=== PATIENT | female | born 1980 | race Caucasian/White ===

== ENCOUNTER 2023-11-26 06:29 | Day surgery (SDC) | payer BC ==
[2023-11-25 16:01] LABS: HEMATOCRIT 36.4 % (37.0-47.0); MEAN CORPUSCULAR HEMOGLOBIN 28.7 pg (28.0-32.0); MEAN CORPUSCULAR VOLUME 87.1 fL (83.0-99.0); MEAN PLATELET VOLUME 10.5 fL (9.4-12.3); PLATELET COUNT,PLT 307 K/uL (150-400); RED BLOOD CELL COUNT 4.18 M/uL (4.10-5.30); WHITE BLOOD CELL COUNT,WBC 6.91 K/uL (3.9-11.3)
[2023-11-26 07:06] LABS: CALCIUM 9.2 mg/dL (8.5-10.1); CARBON DIOXIDE,CO2 28.7 mmol/L (21.0-32.0); CREATININE 0.7 mg/dL (0.6-1.0); EST CRCL DRUG DOSING (CG) 82.8 mL/min; POTASSIUM,K 4.4 mmol/L (3.5-5.1)
[2023-11-26] MEDS: Lactated Ringers 1,000 ML IV SCH ×2 (07:07→18:11)
[2023-11-26] MEDS: Scopalamine 1mg/3day Transdermal Patch TOP ONE (07:15)
[2023-11-26] MEDS ORDERED: Bupivacaine 0.25% 10 ML SDV ONE (07:18)
[2023-11-26] MEDS ORDERED: Methylene Blue 100 MG/10 ML SDV ONE (07:19)
[2023-11-26] MEDS ORDERED: Ketorolac 30 MG/ML SDV ONE (07:23)
[2023-11-26] MEDS ORDERED: Lidocaine 2% 5 ML SDV ONE (07:23)
[2023-11-26] MEDS ORDERED: Dexamethasone 4 MG/ML 5 ML MDV ONE (07:23)
[2023-11-26] MEDS ORDERED: Ondansetron 4 MG/2 ML SDV ONE ×2 (07:23→09:29)
[2023-11-26] MEDS ORDERED: Rocuronium Bromide 50 MG/5 ML Syringe ONE ×2 (07:23→08:43)
[2023-11-26] MEDS ORDERED: Sugammadex Sodium 200 MG/2 ML VIAL IV ONE (07:23)
[2023-11-26] MEDS ORDERED: fentaNYL 100 MCG/2 ML SDV ONE ×2 (07:24→09:39)
[2023-11-26] MEDS ORDERED: Propofol 200 MG/20 ML SDV ONE ×2 (07:24→09:30)
[2023-11-26] MEDS ORDERED: Ketamine HCL/NACL, ISO-OSM 50 MG/5 ML Syringe ONE (07:24)
[2023-11-26] MEDS ORDERED: Water For Injection, Sterile 20 ML ONE (07:28)
[2023-11-26] MEDS ORDERED: dexmedeTOMIDine HCl 200 MCG/2 ML SDV ONE (07:28)
[2023-11-26] MEDS ORDERED: Ropivacaine 0.5% 5 MG/ML 30 ML SDV ONE (07:29)
[2023-11-26] MEDS ORDERED: Bupivacaine 0.25% 30 ML SDV ONE (07:29)
[2023-11-26] MEDS ORDERED: propofoL 50 ML ONE ×2 (07:31→08:34)
[2023-11-26] MEDS ORDERED: Naloxone 0.4 MG/ML SDV IVPUSH PRN (07:32)
[2023-11-26] MEDS ORDERED: Morphine 2 MG/ML SYRINGE IVPUSH PRN (07:32)
[2023-11-26] MEDS ORDERED: Metoclopramide 10 MG/2 ML SDV IVPUSH PRN (07:32)
[2023-11-26] MEDS ORDERED: droPERidol 5 MG/2 ML SDV IVPUSH PRN (07:32)
[2023-11-26] MEDS ORDERED: fentaNYL 50 MCG/ML SDV IVPUSH PRN (07:32)
[2023-11-26] MEDS ORDERED: Albuterol 0.083% 2.5 MG/3 ML Neb Soln NEB PRN (07:32)
[2023-11-26] MEDS ORDERED: Ondansetron 4 MG/2 ML SDV IVPUSH PRN ×2 (07:32→09:54)
[2023-11-26] MEDS ORDERED: ceFAZolin 1 GM Vial ONE (08:23)
[2023-11-26] MEDS ORDERED: Tranexamic Acid 1,000 MG/10 ML Vial ONE (09:00)
[2023-11-26] MEDS ORDERED: Fluorescein 5 ML Vial ONE (09:23)
[2023-11-26] MEDS ORDERED: oxyCODONE 5 MG Tab PO PRN (09:54)
[2023-11-26] MEDS ORDERED: Promethazine 25 MG/ML SDV IM PRN (09:54)
[2023-11-26] MEDS: HYDROmorphone 1 MG/ML Syringe IVPUSH PRN (10:16)
[2023-11-26] MEDS: Acetaminophen 1,000 MG in Premix Bag 1 BAG IV SCH (12:02)
[2023-11-26] MEDS: oxyCODONE 5 MG Tab PO PRN (20:05)
[2023-11-26] MEDS: Docusate Sodium 100 MG Cap PO SCH (20:07)
[2023-11-27] MEDS: Morphine 4 MG/ML Syringe IVPUSH PRN (01:35)
[2023-11-27 06:11] LABS: BASOPHILS ABSOLUTE AUTO 0.03 K/uL (0.00-0.20); BASOPHILS PERCENT AUTO 0.3 % (0.0-1.0); EOSINOPHILS ABSOLUTE AUTO 0.01 K/uL (0.00-0.45); EOSINOPHILS PERCENT AUTO 0.1 % (0.0-6.0); HEMATOCRIT 33.3 % (37.0-47.0); HEMOGLOBIN 10.8 g/dL (12.0-16.0); IMMATURE GRAN ABSOLUTE AUTO 0.03 K/uL (0.00-0.05); IMMATURE GRAN PERCENT AUTO 0.3 % (0.0-0.4); LYMPHOCYTES ABSOLUTE AUTO 1.87 K/uL (1.00-4.80); LYMPHOCYTES PERCENT AUTO 16.2 % (24.0-44.0); MEAN CORPUSCULAR HEMOGLOBIN 28.3 pg (28.0-32.0); MEAN CORPUSCULAR HGB CONC 32.4 g/dL (32.0-36.0); MEAN CORPUSCULAR VOLUME 87.2 fL (83.0-99.0); MEAN PLATELET VOLUME 10.2 fL (9.4-12.3); MONOCYTES ABSOLUTE AUTO 0.92 K/uL (0.00-0.80); NEUTROPHILS ABSOLUTE AUTO 8.67 K/uL (1.80-7.70); NEUTROPHILS PERCENT AUTO 75.1 % (41.0-71.0); PLATELET COUNT,PLT 291 K/uL (150-400); RED BLOOD CELL COUNT 3.82 M/uL (4.10-5.30); WHITE BLOOD CELL COUNT,WBC 11.53 K/uL (3.9-11.3)
[2023-11-27 06:26] LABS: CALCIUM 8.9 mg/dL (8.5-10.1); CARBON DIOXIDE,CO2 27.3 mmol/L (21.0-32.0); CREATININE 0.7 mg/dL (0.6-1.0); EST CRCL DRUG DOSING (CG) 82.8 mL/min; POTASSIUM,K 4.4 mmol/L (3.5-5.1)
[2023-11-27] MEDS: Ketorolac 30 MG/ML SDV IVPUSH ONE (08:23)
== END 2023-11-27 11:45 | disposition home or self-care (01) ==
LOC: MW.SDS 06:29 → MW.OB 06:29 → MW.SDS 11-27 11:45
PROVIDERS: ATTEND Obstetrics & Gynecology
DX: N93.9 Abnormal uterine and vaginal bleeding, unspecified (principal)
CPT/HCPCS: 36415; 58552; 80048; 82947; 84703; 85025; 85027; 86850; 86900; 86901; A9270; J0131; J0665; J0690; J1100; J1170; J1885; J2270; J2704; J2795; J3010; J3490; J7120; Q9968; 00944; 64488; J2405